=== PATIENT | male | born 2005 | race Hispanic/Latino ===

== ENCOUNTER 2024-01-22 20:34 | Emergency (ER) | payer SELFPAY ==
[~2024-01-22 20:34] MED LIST: Iopamidol-370 76% 500 ML MDV (1 ML CHARGE) ONE
[2024-01-22] MEDS ORDERED: Ondansetron PF 4 MG/2 ML Vial ONE (22:59)
[2024-01-22] MEDS ORDERED: Ketorolac Tromethamine 30 MG (1 mL) VIAL ONE (22:59)
[2024-01-22 23:08] LABS: #Basophils 0.05 10x3/uL (0.0-0.2); %Basophils 0.7 % (0.0-1.0); %Lymphocytes 32.2 % (28.0-48.0); %Monocytes 10.2 % (0.0-4.0); %Neutrophils 55.8 % (31.0-61.0); Hematocrit 44.8 % (42.0-52.0); Hemoglobin 15.1 g/dL (14.0-18.0); Mean Corpuscular HGB CONC 33.7 g/dL (32.0-36.0); Mean Corpuscular Hemoglobin 30.3 pg (25.0-35.0); Mean Platelet Volume 9.2 fL (7.4-10.4); Platelet Count 238 10x3/uL (130-400); Red Blood Cell (RBC) Count 4.98 mill/uL (4.00-5.20)
[2024-01-22 23:25] LABS: ALT (SGPT) 26 U/L (8-55); AST (SGOT) 29 U/L (10-45); Albumin 4.4 g/dL (3.5-5.0); Alkaline Phosphatase 123 U/L (50-130); Anion Gap 16 mmol/L (10-20); BUN (Urea Nitrogen) 18 mg/dL (8.4-21.0); Calc. Creatinine Clearance 0 mL/min (70-130); Calcium 8.8 mg/dL (7.8-10.44); Carbon Dioxide 20 mmol/L (22-29); Chloride 106 mmol/L (98-107); Estimated GFR 128; Globulin 2.8 g/dL (2.4-3.5); Glucose 84 mg/dL (70-105); Potassium 3.9 mmol/L (3.5-5.1); Protein, Total 7.2 g/dL (6.0-8.3); Sodium 138 mmol/L (136-145)
== END 2024-01-23 00:28 | disposition home or self-care (01) ==
LOC: ERS 20:34
DX: K29.70 Gastritis, unspecified, without bleeding (principal)
CPT/HCPCS: 74177; 80053; 85025; 96374; 96375; J1885; J2405; Q9967